=== PATIENT | female | born 1945 | race Caucasian/White ===

== ENCOUNTER 2018-11-03 15:44 | Emergency (ER) | payer BC, OTHER ==
[2018-11-03 15:53] VITALS: TEMP 97.9; BMI 21.4
--- NOTE | 2018-11-03 19:19 | PDOC ---
History of Present Illness - General Chief Complaint: Vomiting/Diarrhea Stated Complaint: SIDE AFFECTS TO A MEDICATION Time Seen by Provider: 11/03/18 19:19 Past History - Past Medical History Allergies/Adverse Reactions: Allergies Allergy/AdvReac Type Severity Reaction Status Date / Time aspirin Allergy Verified 11/03/18 15:54 Home Medications: Ambulatory Orders Calcium (Oyster Shell) [Os-Jose 500MG -] 500 mg PO DAILY #14 tablet 06/08/12 Losartan Potassium [Cozaar -] 50 mg PO DAILY #30 tablet 06/08/12 Multivitamins [Multivit ([facility])] 1 udtab PO DAILY #10 tab 06/08/12 Atorvastatin Ca [Lipitor -] 20 mg PO tablet 07/12/13 Carvedilol 12.5 mg PO tablet 07/12/13 Vitamin B Complex 1 each PO tablet 07/12/13 COPD: No HTN: Yes Hypercholesterolemia: Yes - Surgical History Cholecystectomy: Yes - Suicide/Smoking/Psychosocial Hx Smoking Status: No Smoking History: Never smoked Number of Cigarettes Smoked Daily: 0 Hx Alcohol Use: No Drug/Substance Use Hx: No *Physical Exam - Vital Signs Last Vital Signs Temp Pulse Resp BP Pulse Ox 97.9 F 58 L 16 163/88 97 11/03/18 15:52 11/03/18 15:52 11/03/18 15:52 11/03/18 15:52 11/03/18 15:52 ED Treatment Course - LABORATORY CBC & Chemistry Diagram: 11/03/18 20:00 11/03/18 20:00 Medical Decision Making - Medical Decision Making HPI: 73yo F with PMH of HTN, HLD, dementia, "a small stroke," osteoporosis presenting with nausea, vomiting, and diarrhea. Patient's daughter is at the bedside providing collateral history. Patient was started on donepezil 5mg for dementia after waiting several weeks for insurance approval. She took a pill yesterday around nine am and felt nauseous and lightheaded around 2:30pm. She felt better last night, but again took the pill this morning and was symptomatic in the afternoon. Patient had two episodes of vomit consisting of undigested food and bile today. Still feels nauseous. Had two loose nonbloody stools yesteday and three today which is unusual for her. Never felt like this way before. History of abdominal surgeries include gallbladder removal and c- section. Tried to get in touch with prescriber, left a phone message, but missed the callback. Denies abdominal pain. No fevers, chills, chest pain, or shortness of breath. Patient is Upper Sorbian-speaking, declined alteration worker services, and requested her daughter translate. ROS: Constitutional: no fever, no chills HEENT: no throat pain, no dysphagia Cardiovascular: no chest pain, no palpitations Respiratory: no cough, no shortness of breath Gastrointestinal: no abdominal pain, +nausea Genitourinary: no dysuria, no hematuria Musculoskeletal: +back pain, no leg pain Skin: no rash, no itching Neurologic: no headache, no weakness PE: General: Awake, alert, and fully oriented, in no acute distress Head: No signs of trauma Eyes: EOMI, sclera anicteric ENT: Moist mucus membranes Neck: Normal ROM, supple Lungs: Lungs clear, Normal breath sounds Cardio: Regular rhythm, S1 and S2 present Abdomen: Soft, nontender. No guarding, no rebound, no masses Extremities: Normal range of motion, Distal pulses present SKIN: Warm, Dry, normal turgor Neurologic: Cranial nerves II through XII grossly intact. Normal speech ED Course/MDM: DDX including but not limited to medication adverse affect, gastritis, GERD, pancreatitis, viral illness Labs Caryn [place] 11/03/18 19:19 11/03/18 20:13 11/03/18 22:46 *DC/Admit/Observation/Transfer Diagnosis at time of Disposition: Nausea & vomiting Qualifiers: Vomiting type: bilious vomiting Qualified Code(s): R11.14 - Bilious vomiting - Discharge Dispostion Disposition: HOME Condition at time of disposition: Improved - Referrals Referrals: Jeevan Falcon MD [Primary Care Provider] - Carmen Woo PA [Physician Bindery Leadperson] - - Patient Instructions Printed Discharge Instructions: DI for Vomiting -- Adult Additional Instructions: You came into the ED for nausea, vomiting, and diarrhea. We gave you medicine which helped you feel better. Labs did not indicate acute pathology Prescription sent to your pharmacy for nausea/vomiting. Take as instructed. Follow-up with your primary care provider within 72 hours to discuss this ED visit and to further evaluate your symptoms. Call tomorrow morning and make an appointment . Your workup is not complete until you do so. Immediate medical attention is required if you develop: severe abdominal pain, high fevers, persistent nausea, vomiting, or any new or concerning symptoms. If you think you are having an emergency, call for emergency medical services or present to the emergency department right away. ==== Llegaste al servicio de urgencias por nuseas, vmitos y diarrea. Le dimos medicamentos que lo ayudaron a sentirse mejor. Los laboratorios no indicaron patologa aguda Receta enviada a obrien farmacia para nuseas / vmitos. Tmelo segn las instrucciones. Sweta un seguimiento con obrien proveedor de atencin primaria dentro de las 72 horas para analizar esta visita al servicio de urgencias y evaluar mejor sandeep sntomas. Llame maana por la maana y sweta greg chikis. Obrien trabajo no est completo hasta que lo sweta. Se requiere atencin mdica inmediata si desarrolla: dolor abdominal intenso, fiebre carlos enrique, nuseas persistentes, vmitos o cualquier sntoma nuevo o preocupante. Si darling que tiene greg emergencia, llame a los servicios mdicos de emergencia o presntese en el departamento de emergencias de inmediato. Print Language: GREENLANDIC - Post Discharge Activity
[2018-11-03] MEDS ORDERED: SODIUM CHLORIDE 1,000 ML IV STA (19:41)
[2018-11-03] MEDS ORDERED: ONDANSETRON 4 MG/2 ML VIAL IVPUSH ONE (19:41)
[2018-11-03] MEDS ORDERED: ONDANSETRON 4 MG/2 ML VIAL ONE (19:54)
[2018-11-03 20:10] LABS: BASO % 0.6 % (0-2.0); EOS % 0.7 % (0-4.5); HEMOGLOBIN 15.9 GM/dL (10.7-15.3); LYMPH % 15.4 % (8-40); MCH 30.4 pg (25.7-33.7); MCHC 33.7 g/dl (32.0-36.0); MEAN PLT VOLUME 8.5 fl (7.5-11.1); MONO % 2.6 % (3.8-10.2); NEUT % 80.7 % (42.8-82.8); PLATELET COUNT 164 K/MM3 (134-434); RBC 5.22 M/mm3 (3.60-5.2); RDW 14.5 % (11.6-15.6); WHITE BLOOD COUNT 5.3 K/mm3 (4.0-10.0)
[2018-11-03 20:44] LABS: ALBUMIN 4.2 g/dl (3.4-5.0); BILIRUBIN,TOTAL 0.7 mg/dL (0.2-1); BLOOD UREA NITROGEN 14.3 mg/dL (7-18); CALCIUM 9.7 mg/dL (8.5-10.1); CREATININE 0.7 mg/dL (0.55-1.3); POTASSIUM 4.5 mmol/L (3.5-5.1); TOT PROT 8.1 g/dl (6.4-8.2)
--- NOTE | 2018-11-03 22:35 | PDOC ---
Attending Attestation - Resident Resident Name: Kinsey Ye - ED Attending Attestation I have performed the following: I have examined & evaluated the patient, The case was reviewed & discussed with the resident, I agree w/resident's findings & plan, Exceptions are as noted - HPI HPI: 11/03/18 22:35 73 yo female started a new medication and now has nausea and vomiting - Physicial Exam PE: 11/03/18 22:[address] Ye's physical exam BENIGN ABDOMINAL EXAM - Medical Decision Making 11/03/18 22:49 73 yo female started taking donepezil for dementia and started to have vomiting she has a benign abdominal exam there is a high incidence of nausea and vomiting with this medication pt will followup with her PCP this week
[2018-11-04 04:15] VITALS: BP 164/83; PULSE 52
== END 2018-11-03 23:35 | disposition home or self-care (01) ==
LOC: SUPCPDRO 15:44 → JER 15:44
PROC: 3E033GC Introduction of Other Therapeutic Substance into Peripheral Vein, Percutaneous Approach (ICD-10-PCS; principal; 2018-11-03)
PROC: 3E0337Z Introduction of Electrolytic and Water Balance Substance into Peripheral Vein, Percutaneous Approach (ICD-10-PCS; 2018-11-03)
DX: R11.14 Bilious vomiting (principal); I10 Essential (primary) hypertension; E78.5 Hyperlipidemia, unspecified; Z86.73 Personal history of transient ischemic attack (TIA), and cerebral infarction without residual deficits; R19.7 Diarrhea, unspecified
CPT/HCPCS: 36415; 80053; 83690; 85025; 96361; 96374; 99282-25; J7030

== ENCOUNTER 2020-07-16 23:50 | Inpatient (IN) | payer BC, OTHER ==
[2020-07-17 00:41] VITALS: BMI 24.0
[2020-07-17 00:50] LABS: BASO % 0.4 % (0-2.0); EOS % 2.6 % (0-4.5); HEMATOCRIT 42.4 % (32.4-45.2); HEMOGLOBIN 14.3 GM/dL (10.7-15.3); LYMPH % 31.5 % (8-40); MCH 30.3 pg (25.7-33.7); MCHC 33.7 g/dl (32.0-36.0); MEAN PLT VOLUME 9.3 fl (7.5-11.1); MONO % 6.3 % (3.8-10.2); NEUT % 59.2 % (42.8-82.8); PLATELET COUNT 162 K/MM3 (134-434); RBC 4.71 M/mm3 (3.60-5.2); RDW 14.2 % (11.6-15.6); WHITE BLOOD COUNT 4.5 K/mm3 (4.0-10.0)
[2020-07-17 00:57] LABS: INR 1.03 (0.83-1.09); PROTHROMBIN TIME (PATIENT) 12.7 SEC (9.7-13.0)
[2020-07-17 00:59] LABS: ACTIVATED PTT 30.3 SECONDS (25.2-36.5)
[2020-07-17 01:03] LABS: CHLORIDE 106 mmol/L (98-107); SODIUM 141 mmol/L (136-145)
[2020-07-17 01:04] LABS: PH,URINE 7.5 (5.0-8.0); URINE APPEARANCE CLEAR; URINE BILIRUBIN NEGATIVE (NEGATIVE); URINE COLOR YELLOW; URINE GLUCOSE (UA) NEGATIVE (NEGATIVE); URINE KETONE NEGATIVE (NEGATIVE); URINE LEUK ESTERASE NEGATIVE (NEGATIVE); URINE NITRITE NEGATIVE (NEGATIVE); URINE PROTEIN NEGATIVE (NEGATIVE); URINE UROBILINOGEN 0.2 mg/dL (0.2-1.0)
[2020-07-17 01:06] LABS: ANION GAP 4 MMOL/L (8-16); CALCIUM 8.8 mg/dL (8.5-10.1); CO2 31 mmol/L (21-32)
[2020-07-17 01:07] LABS: BLOOD UREA NITROGEN 20.9 mg/dL (7-18); GLUCOSE,RANDOM 99 mg/dL (74-106)
[2020-07-17 01:08] LABS: SGPT/ALT 21 U/L (13-61)
[2020-07-17 01:10] LABS: BILIRUBIN,TOTAL 0.3 mg/dL (0.2-1); CHOLESTEROL 217 mg/dL (50-200); CREATININE 0.7 mg/dL (0.55-1.3); LDL CHOLESTEROL (ONLY SJRH) 125 mg/dL (5-100); SGOT/AST 24 U/L (15-37); TOT PROT 7.5 g/dl (6.4-8.2); TRIGLYCERIDES 88 mg/dL (0-150)
[2020-07-17 01:12] LABS: ALK PHOS 67 U/L (45-117); HDL CHOLESTEROL 61 mg/dL (40-60)
[2020-07-17] MEDS: SODIUM CHLORIDE 1,000 ML IV SCH (01:40)
[2020-07-17] MEDS: CLOPIDOGREL BISULFATE 75 MG TABLET (FP) PO SCH (14:19)
[2020-07-17] MEDS ORDERED: PT OWN MED DRAWER 7, Y5N ONE (18:28)
[2020-07-17] MEDS: ENOXAPARIN NA (PORCINE) 40 MG/0.4 ML DISP.SYRIN SQ SCH (18:42)
[2020-07-17] MEDS: ATORVASTATIN CA 40 MG TABLET (FP) PO SCH (21:25)
[2020-07-18 06:55] LABS: HEMATOCRIT 42.5 % (32.4-45.2); HEMOGLOBIN 14.5 GM/dL (10.7-15.3); MCH 30.5 pg (25.7-33.7); MEAN CELL VOLUME 89.5 fl (80-96); MEAN PLT VOLUME 9.3 fl (7.5-11.1); PLATELET COUNT 144 K/MM3 (134-434); RBC 4.74 M/mm3 (3.60-5.2); RDW 13.9 % (11.6-15.6); WHITE BLOOD COUNT 2.9 K/mm3 (4.0-10.0)
[2020-07-18 07:29] LABS: CHLORIDE 109 mmol/L (98-107); SODIUM 140 mmol/L (136-145)
[2020-07-18 07:33] LABS: CALCIUM 8.2 mg/dL (8.5-10.1); GLUCOSE,RANDOM 104 mg/dL (74-106)
[2020-07-18 07:34] LABS: ANION GAP 6 MMOL/L (8-16); CO2 26 mmol/L (21-32)
[2020-07-18 07:37] LABS: CREATININE 0.6 mg/dL (0.55-1.3)
[2020-07-18] MEDS: CALCIUM (OYSTER SHELL) 500 MG TABLET (FP) PO SCH (09:26)
[2020-07-18] MEDS: MULTIVITAMINS (DAILY MVI) TABLET (FP) PO SCH (09:26)
[2020-07-18] MEDS: CLOPIDOGREL BISULFATE 75 MG TABLET (FP) PO SCH (09:26)
[2020-07-18] MEDS: VITAMIN B COMPLEX W/C COMBO TABLET (FP) PO SCH (09:26)
[2020-07-18] MEDS: ENOXAPARIN NA (PORCINE) 40 MG/0.4 ML DISP.SYRIN SQ SCH (09:26)
[2020-07-18] MEDS: FAMOTIDINE 40 MG TABLET PO SCH (11:13)
[2020-07-18] MEDS ORDERED: LOSARTAN POTASSIUM 25 MG TABLET PO SCH (13:15)
[2020-07-18] MEDS ORDERED: LOSARTAN POTASSIUM 25 MG TABLET PO ONE (14:32)
[2020-07-18] MEDS: SODIUM CHLORIDE 1,000 ML IV SCH (14:44)
[2020-07-18] MEDS: ATORVASTATIN CA 40 MG TABLET (FP) PO SCH (21:57)
[2020-07-19] MEDS ORDERED: hydrALAZINE HCL 20 MG/ML VIAL IVPUSH ONE (02:13)
[2020-07-19] MEDS: LOSARTAN POTASSIUM 50 MG TABLET PO SCH (09:04)
[2020-07-19] MEDS: MULTIVITAMINS (DAILY MVI) TABLET (FP) PO SCH (09:05)
[2020-07-19] MEDS: CLOPIDOGREL BISULFATE 75 MG TABLET (FP) PO SCH (09:05)
[2020-07-19] MEDS: CALCIUM (OYSTER SHELL) 500 MG TABLET (FP) PO SCH (09:05)
[2020-07-19] MEDS: ENOXAPARIN NA (PORCINE) 40 MG/0.4 ML DISP.SYRIN SQ SCH (09:05)
[2020-07-19] MEDS: VITAMIN B COMPLEX W/C COMBO TABLET (FP) PO SCH (09:05)
[2020-07-19] MEDS: FAMOTIDINE 40 MG TABLET PO SCH (10:01)
[2020-07-19] MEDS: amLODIPine BESYLATE 5 MG TABLET (FP) PO SCH (17:46)
[2020-07-19] MEDS: ATORVASTATIN CA 40 MG TABLET (FP) PO SCH (21:00)
[2020-07-20] MEDS: LOSARTAN POTASSIUM 50 MG TABLET PO SCH (10:20)
[2020-07-20] MEDS: CLOPIDOGREL BISULFATE 75 MG TABLET (FP) PO SCH (10:20)
[2020-07-20] MEDS: CALCIUM (OYSTER SHELL) 500 MG TABLET (FP) PO SCH (10:20)
[2020-07-20] MEDS: MULTIVITAMINS (DAILY MVI) TABLET (FP) PO SCH (10:20)
[2020-07-20] MEDS: ENOXAPARIN NA (PORCINE) 40 MG/0.4 ML DISP.SYRIN SQ SCH (10:20)
[2020-07-20] MEDS: VITAMIN B COMPLEX W/C COMBO TABLET (FP) PO SCH (10:20)
[2020-07-20] MEDS: amLODIPine BESYLATE 5 MG TABLET (FP) PO SCH (10:20)
[2020-07-20] MEDS: FAMOTIDINE 40 MG TABLET PO SCH (10:21)
[2020-07-20] MEDS: ATORVASTATIN CA 40 MG TABLET (FP) PO SCH (21:10)
[2020-07-21] MEDS: FAMOTIDINE 40 MG TABLET PO SCH (09:24)
[2020-07-21] MEDS: ENOXAPARIN NA (PORCINE) 40 MG/0.4 ML DISP.SYRIN SQ SCH (09:24)
[2020-07-21] MEDS: MULTIVITAMINS (DAILY MVI) TABLET (FP) PO SCH (09:24)
[2020-07-21] MEDS: amLODIPine BESYLATE 5 MG TABLET (FP) PO SCH (09:24)
[2020-07-21] MEDS: CLOPIDOGREL BISULFATE 75 MG TABLET (FP) PO SCH (09:24)
[2020-07-21] MEDS: LOSARTAN POTASSIUM 50 MG TABLET PO SCH (09:24)
[2020-07-21] MEDS: CALCIUM (OYSTER SHELL) 500 MG TABLET (FP) PO SCH (09:24)
[2020-07-21] MEDS: VITAMIN B COMPLEX W/C COMBO TABLET (FP) PO SCH (09:24)
[2020-07-21] MEDS: ATORVASTATIN CA 40 MG TABLET (FP) PO SCH (22:25)
[2020-07-22 09:56] VITALS: BP 149/85; PULSE 80; TEMP 98
[2020-07-22] MEDS ORDERED: PT OWN MED DRAWER 7, Y5N ONE (10:10)
[2020-07-22] MEDS: CLOPIDOGREL BISULFATE 75 MG TABLET (FP) PO SCH (10:39)
[2020-07-22] MEDS: VITAMIN B COMPLEX W/C COMBO TABLET (FP) PO SCH (10:39)
[2020-07-22] MEDS: CALCIUM (OYSTER SHELL) 500 MG TABLET (FP) PO SCH (10:39)
[2020-07-22] MEDS: FAMOTIDINE 40 MG TABLET PO SCH (10:40)
[2020-07-22] MEDS: LOSARTAN POTASSIUM 50 MG TABLET PO SCH (10:40)
[2020-07-22] MEDS: ENOXAPARIN NA (PORCINE) 40 MG/0.4 ML DISP.SYRIN SQ SCH (10:40)
[2020-07-22] MEDS: amLODIPine BESYLATE 5 MG TABLET (FP) PO SCH (10:40)
[2020-07-22] MEDS: MULTIVITAMINS (DAILY MVI) TABLET (FP) PO SCH (10:41)
== END 2020-07-22 15:20 | disposition home or self-care (01) | DRG 65 ==
LOC: JER 23:50 → JERBED 07-17 01:28 → J4W 07-17 09:07
PROVIDERS: ADMIT Hospitalist; ATTEND Internal Medicine
DX: I63.9 Cerebral infarction, unspecified (principal); G81.91 Hemiplegia, unspecified affecting right dominant side; I10 Essential (primary) hypertension; F03.90 Unspecified dementia, unspecified severity, without behavioral disturbance, psychotic disturbance, mood disturbance, and anxiety; E78.5 Hyperlipidemia, unspecified; R29.707 NIHSS score 7
CPT/HCPCS: 36415; 70450-TC; 70496-TC; 70498-TC; 70551-TC; 71045-TC-FY; 72125-TC; 78452-TC; 80048; 80053; 80061; 81003; 82550; 83036; 83721; 84443; 84484; 85025; 85027; 85610; 85730; 86850; 86900; 86901; 93005; 93010; 93017; 93306-TC; 93880-TC; 97116-GP; 97161-GP; 99285-25; A9502; C9803; U0003; U0005

== ENCOUNTER 2021-07-30 11:56 | Inpatient (IN) | payer BC, OTHER ==
[2021-07-30] MEDS ORDERED: SODIUM CHLORIDE 1,000 ML IV SCH (12:15)
[2021-07-30 13:11] LABS: BASO % 0.6 % (0-2.0); EOS % 1.4 % (0-4.5); HEMATOCRIT 41.4 % (32.4-45.2); HEMOGLOBIN 14.1 GM/dL (10.7-15.3); LYMPH % 28.1 % (8-40); MCH 30.3 pg (25.7-33.7); MEAN PLT VOLUME 8.9 fl (7.5-11.1); MONO % 5.1 % (3.8-10.2); NEUT % 64.8 % (42.8-82.8); PLATELET COUNT 143 10^3/uL (134-434); RBC 4.65 M/mm3 (3.60-5.2); RDW 14.5 % (11.6-15.6); WHITE BLOOD COUNT 3.6 K/mm3 (4.0-10.0)
[2021-07-30 13:27] LABS: ACTIVATED PTT 32.9 SECONDS (25.2-36.5); PROTHROMBIN TIME (PATIENT) 11.5 SEC (9.7-13.0)
[2021-07-30 13:30] LABS: CALCIUM 8.7 mg/dL (8.5-10.1)
[2021-07-30 13:31] LABS: ALBUMIN 3.5 g/dl (3.4-5.0); BLOOD UREA NITROGEN 15.4 mg/dL (7-18)
[2021-07-30 13:33] LABS: CREATININE 0.7 mg/dL (0.55-1.3)
[2021-07-30 13:35] LABS: BILIRUBIN,TOTAL 0.5 mg/dL (0.2-1)
[2021-07-30] MEDS ORDERED: LIDOCAINE 5% TOPICAL PATCH TP ONE (13:57)
[2021-07-30] MEDS ORDERED: ACETAMINOPHEN 1000 MG/100 ML BAG IVPB ONE (13:57)
[2021-07-30 14:34] LABS: PH,URINE 7.5 (5.0-8.0); URINE APPEARANCE CLEAR; URINE BILIRUBIN NEGATIVE (NEGATIVE); URINE COLOR YELLOW; URINE GLUCOSE (UA) NEGATIVE (NEGATIVE); URINE KETONE NEGATIVE (NEGATIVE); URINE LEUK ESTERASE NEGATIVE (NEGATIVE); URINE NITRITE NEGATIVE (NEGATIVE); URINE PROTEIN NEGATIVE (NEGATIVE); URINE UROBILINOGEN 0.2 mg/dL (0.2-1.0)
[2021-07-30] MEDS ORDERED: LIDOCAINE 5% TOPICAL PATCH ONE (14:41)
[2021-07-30] MEDS ORDERED: ACETAMINOPHEN INJECTION 100 ML IVPB ONE (14:41)
[2021-07-30] MEDS ORDERED: CLOPIDOGREL BISULFATE 75 MG TABLET (FP) ONE (19:34)
[2021-07-30] MEDS ORDERED: ENOXAPARIN NA (PORCINE) 40 MG/0.4 ML DISP.SYRIN SQ ONE (19:34)
[2021-07-30] MEDS: ENOXAPARIN NA (PORCINE) 40 MG/0.4 ML DISP.SYRIN SQ SCH (19:55)
[2021-07-30] MEDS: CLOPIDOGREL BISULFATE 75 MG TABLET (FP) PO SCH (19:55)
[2021-07-30] MEDS ORDERED: LIDOCAINE PATCH REMOVAL MC SCH (22:00)
[2021-07-31] MEDS ORDERED: ATORVASTATIN CA 40 MG TABLET (FP) ONE ×2 (02:43→22:04)
[2021-07-31] MEDS: ATORVASTATIN CA 40 MG TABLET (FP) PO SCH ×2 (02:45→22:05)
[2021-07-31 07:07] LABS: BASO % 0.5 % (0-2.0); EOS % 2.6 % (0-4.5); HEMATOCRIT 44.9 % (32.4-45.2); HEMOGLOBIN 14.8 GM/dL (10.7-15.3); LYMPH % 33.9 % (8-40); MCH 29.8 pg (25.7-33.7); MCHC 33.1 g/dl (32.0-36.0); MEAN PLT VOLUME 8.8 fl (7.5-11.1); MONO % 6.5 % (3.8-10.2); NEUT % 56.5 % (42.8-82.8); PLATELET COUNT 146 10^3/uL (134-434); RBC 4.99 M/mm3 (3.60-5.2); RDW 14.2 % (11.6-15.6); WHITE BLOOD COUNT 3.3 K/mm3 (4.0-10.0)
[2021-07-31 07:25] LABS: CALCIUM 8.7 mg/dL (8.5-10.1)
[2021-07-31 07:26] LABS: ALBUMIN 3.6 g/dl (3.4-5.0); BLOOD UREA NITROGEN 9.2 mg/dL (7-18)
[2021-07-31 07:29] LABS: CREATININE 0.6 mg/dL (0.55-1.3)
[2021-07-31 07:30] LABS: BILIRUBIN,TOTAL 0.7 mg/dL (0.2-1)
[2021-07-31] MEDS ORDERED: amLODIPine BESYLATE 5 MG TABLET (FP) ONE (08:01)
[2021-07-31] MEDS ORDERED: LOSARTAN POTASSIUM 50 MG TABLET ONE (08:02)
[2021-07-31] MEDS ORDERED: FAMOTIDINE 20 MG TABLET ONE (08:02)
[2021-07-31] MEDS ORDERED: CLOPIDOGREL BISULFATE 75 MG TABLET (FP) ONE (08:02)
[2021-07-31] MEDS ORDERED: ENOXAPARIN NA (PORCINE) 40 MG/0.4 ML DISP.SYRIN SQ ONE (08:03)
[2021-07-31] MEDS ORDERED: MULTIVITAMINS (DAILY MVI) TABLET (FP) ONE (08:03)
[2021-07-31] MEDS ORDERED: VITAMIN B COMPLEX PO SCH (10:00)
[2021-07-31] MEDS ORDERED: PATIENT'S OWN MEDICATION (NON-FORMULARY) (Famotidine 40 MG Tablet) PO SCH (10:00)
[2021-07-31] MEDS: FAMOTIDINE 40 MG TABLET PO SCH (10:45)
[2021-07-31] MEDS: CLOPIDOGREL BISULFATE 75 MG TABLET (FP) PO SCH (10:45)
[2021-07-31] MEDS: MULTIVITAMINS (DAILY MVI) TABLET (FP) PO SCH (10:45)
[2021-07-31] MEDS: amLODIPine BESYLATE 5 MG TABLET (FP) PO SCH (10:45)
[2021-07-31] MEDS: LOSARTAN POTASSIUM 50 MG TABLET PO SCH (10:45)
[2021-07-31] MEDS ORDERED: POTASSIUM CHLORIDE TABS 20 MEQ TABLET.ER (FP) PO ONE ×2 (10:57→13:16)
[2021-07-31] MEDS: ENOXAPARIN NA (PORCINE) 40 MG/0.4 ML DISP.SYRIN SQ SCH (11:18)
[2021-07-31] MEDS: CALCIUM (OYSTER SHELL) 500 MG TABLET (FP) PO SCH (13:29)
[2021-07-31] MEDS: VITAMIN B COMPLEX W/C COMBO TABLET (FP) PO SCH (13:29)
[2021-08-01] MEDS: ENOXAPARIN NA (PORCINE) 40 MG/0.4 ML DISP.SYRIN SQ SCH (10:05)
[2021-08-01] MEDS: CALCIUM (OYSTER SHELL) 500 MG TABLET (FP) PO SCH (10:06)
[2021-08-01] MEDS: VITAMIN B COMPLEX W/C COMBO TABLET (FP) PO SCH (10:06)
[2021-08-01] MEDS: amLODIPine BESYLATE 5 MG TABLET (FP) PO SCH (10:06)
[2021-08-01] MEDS: MULTIVITAMINS (DAILY MVI) TABLET (FP) PO SCH (10:06)
[2021-08-01] MEDS: FAMOTIDINE 40 MG TABLET PO SCH (10:06)
[2021-08-01] MEDS: LOSARTAN POTASSIUM 50 MG TABLET PO SCH (10:07)
[2021-08-01] MEDS: TICAGRELOR 60 MG TABLET PO SCH ×2 (10:07→22:35)
[2021-08-01] MEDS: ATORVASTATIN CA 40 MG TABLET (FP) PO SCH (22:35)
[2021-08-02] MEDS: ENOXAPARIN NA (PORCINE) 40 MG/0.4 ML DISP.SYRIN SQ SCH (09:19)
[2021-08-02] MEDS: MULTIVITAMINS (DAILY MVI) TABLET (FP) PO SCH (09:20)
[2021-08-02] MEDS: VITAMIN B COMPLEX W/C COMBO TABLET (FP) PO SCH (09:20)
[2021-08-02] MEDS: amLODIPine BESYLATE 5 MG TABLET (FP) PO SCH (09:20)
[2021-08-02] MEDS: LOSARTAN POTASSIUM 50 MG TABLET PO SCH (09:23)
[2021-08-02] MEDS: FAMOTIDINE 40 MG TABLET PO SCH (09:26)
[2021-08-02] MEDS: TICAGRELOR 60 MG TABLET PO SCH ×2 (09:26→21:11)
[2021-08-02] MEDS: CALCIUM (OYSTER SHELL) 500 MG TABLET (FP) PO SCH (09:26)
[2021-08-02 18:12] LABS: BASO % 0.8 % (0-2.0); EOS % 3.2 % (0-4.5); HEMATOCRIT 49.5 % (32.4-45.2); HEMOGLOBIN 16.6 GM/dL (10.7-15.3); LYMPH % 43.3 % (8-40); MCH 29.9 pg (25.7-33.7); MCHC 33.6 g/dl (32.0-36.0); MEAN CELL VOLUME 89.2 fl (80-96); MEAN PLT VOLUME 8.6 fl (7.5-11.1); MONO % 9.4 % (3.8-10.2); NEUT % 43.3 % (42.8-82.8); PLATELET COUNT 158 10^3/uL (134-434); RBC 5.55 M/mm3 (3.60-5.2); RDW 14.6 % (11.6-15.6); WHITE BLOOD COUNT 3.6 K/mm3 (4.0-10.0)
[2021-08-02 18:31] LABS: BLOOD UREA NITROGEN 17.3 mg/dL (7-18)
[2021-08-02 18:34] LABS: CREATININE 0.8 mg/dL (0.55-1.3)
[2021-08-02] MEDS: ATORVASTATIN CA 40 MG TABLET (FP) PO SCH (21:11)
[2021-08-03] MEDS: TICAGRELOR 60 MG TABLET PO SCH ×2 (09:17→21:00)
[2021-08-03] MEDS: LOSARTAN POTASSIUM 50 MG TABLET PO SCH (09:17)
[2021-08-03] MEDS: ENOXAPARIN NA (PORCINE) 40 MG/0.4 ML DISP.SYRIN SQ SCH (09:17)
[2021-08-03] MEDS: amLODIPine BESYLATE 10 MG TABLET (FP) PO SCH (09:18)
[2021-08-03] MEDS: CALCIUM (OYSTER SHELL) 500 MG TABLET (FP) PO SCH (09:18)
[2021-08-03] MEDS: VITAMIN B COMPLEX W/C COMBO TABLET (FP) PO SCH (09:18)
[2021-08-03] MEDS: MULTIVITAMINS (DAILY MVI) TABLET (FP) PO SCH (09:18)
[2021-08-03] MEDS: FAMOTIDINE 40 MG TABLET PO SCH (09:19)
[2021-08-03] MEDS: SERTRALINE HCL 25 MG TABLET (FP) PO SCH (13:00)
[2021-08-03] MEDS: ATORVASTATIN CA 40 MG TABLET (FP) PO SCH (21:00)
[2021-08-04] MEDS: MULTIVITAMINS (DAILY MVI) TABLET (FP) PO SCH (09:11)
[2021-08-04] MEDS: CALCIUM (OYSTER SHELL) 500 MG TABLET (FP) PO SCH (09:11)
[2021-08-04] MEDS: ENOXAPARIN NA (PORCINE) 40 MG/0.4 ML DISP.SYRIN SQ SCH (09:11)
[2021-08-04] MEDS: FAMOTIDINE 40 MG TABLET PO SCH (09:11)
[2021-08-04] MEDS: LOSARTAN POTASSIUM 50 MG TABLET PO SCH (09:11)
[2021-08-04] MEDS: SERTRALINE HCL 25 MG TABLET (FP) PO SCH (09:11)
[2021-08-04] MEDS: amLODIPine BESYLATE 10 MG TABLET (FP) PO SCH (09:11)
[2021-08-04] MEDS: VITAMIN B COMPLEX W/C COMBO TABLET (FP) PO SCH (09:11)
[2021-08-04] MEDS: TICAGRELOR 60 MG TABLET PO SCH ×2 (09:11→21:22)
[2021-08-04] MEDS: ATORVASTATIN CA 40 MG TABLET (FP) PO SCH (21:22)
[2021-08-05] MEDS: amLODIPine BESYLATE 10 MG TABLET (FP) PO SCH (09:51)
[2021-08-05] MEDS: MULTIVITAMINS (DAILY MVI) TABLET (FP) PO SCH (09:51)
[2021-08-05] MEDS: LOSARTAN POTASSIUM 50 MG TABLET PO SCH (09:51)
[2021-08-05] MEDS: VITAMIN B COMPLEX W/C COMBO TABLET (FP) PO SCH (09:51)
[2021-08-05] MEDS: ENOXAPARIN NA (PORCINE) 40 MG/0.4 ML DISP.SYRIN SQ SCH (09:52)
[2021-08-05] MEDS: TICAGRELOR 60 MG TABLET PO SCH ×2 (09:54→21:42)
[2021-08-05] MEDS: FAMOTIDINE 40 MG TABLET PO SCH (09:54)
[2021-08-05] MEDS: CALCIUM (OYSTER SHELL) 500 MG TABLET (FP) PO SCH (09:55)
[2021-08-05] MEDS: SERTRALINE HCL 25 MG TABLET (FP) PO SCH (10:20)
[2021-08-05] MEDS: ATORVASTATIN CA 40 MG TABLET (FP) PO SCH (21:42)
[2021-08-06] MEDS: ENOXAPARIN NA (PORCINE) 40 MG/0.4 ML DISP.SYRIN SQ SCH (09:13)
[2021-08-06] MEDS: CALCIUM (OYSTER SHELL) 500 MG TABLET (FP) PO SCH (09:14)
[2021-08-06] MEDS: TICAGRELOR 60 MG TABLET PO SCH ×2 (09:14→21:27)
[2021-08-06] MEDS: FAMOTIDINE 40 MG TABLET PO SCH (09:14)
[2021-08-06] MEDS: LOSARTAN POTASSIUM 50 MG TABLET PO SCH (09:14)
[2021-08-06] MEDS: VITAMIN B COMPLEX W/C COMBO TABLET (FP) PO SCH (09:14)
[2021-08-06] MEDS: SERTRALINE HCL 25 MG TABLET (FP) PO SCH (09:14)
[2021-08-06] MEDS: MULTIVITAMINS (DAILY MVI) TABLET (FP) PO SCH (09:14)
[2021-08-06] MEDS: amLODIPine BESYLATE 10 MG TABLET (FP) PO SCH (09:15)
[2021-08-06 14:48] VITALS: BMI 20.9
[2021-08-06] MEDS ORDERED: ACETAMINOPHEN 325 MG TABLET (FP) PO PRN (21:06)
[2021-08-06] MEDS: ATORVASTATIN CA 40 MG TABLET (FP) PO SCH (21:26)
[2021-08-07] MEDS: LOSARTAN POTASSIUM 50 MG TABLET PO SCH (09:48)
[2021-08-07] MEDS: CALCIUM (OYSTER SHELL) 500 MG TABLET (FP) PO SCH (09:48)
[2021-08-07] MEDS: FAMOTIDINE 40 MG TABLET PO SCH (09:48)
[2021-08-07] MEDS: amLODIPine BESYLATE 10 MG TABLET (FP) PO SCH (09:48)
[2021-08-07] MEDS: TICAGRELOR 60 MG TABLET PO SCH (09:48)
[2021-08-07] MEDS: VITAMIN B COMPLEX W/C COMBO TABLET (FP) PO SCH (09:49)
[2021-08-07] MEDS: MULTIVITAMINS (DAILY MVI) TABLET (FP) PO SCH (09:49)
[2021-08-07] MEDS: SERTRALINE HCL 25 MG TABLET (FP) PO SCH (09:49)
[2021-08-07 16:06] VITALS: BP 141/80; PULSE 68; TEMP 97.7
== END 2021-08-07 17:08 | DRG 65 ==
LOC: JER 11:56 → JERBED 13:31 → J2W 07-31 22:18
PROVIDERS: ADMIT Internal Medicine; ATTEND Internal Medicine
DX: I63.89 Other cerebral infarction (principal); I69.354 Hemiplegia and hemiparesis following cerebral infarction affecting left non-dominant side; R29.704 NIHSS score 4; I10 Essential (primary) hypertension; E78.5 Hyperlipidemia, unspecified; F03.90 Unspecified dementia, unspecified severity, without behavioral disturbance, psychotic disturbance, mood disturbance, and anxiety; R53.1 Weakness; R73.03 Prediabetes; D72.819 Decreased white blood cell count, unspecified; E87.6 Hypokalemia; F32.A Depression, unspecified; Z85.3 Personal history of malignant neoplasm of breast
CPT/HCPCS: 36415; 70450-TC; 70496-TC; 70498-TC; 70551-TC; 80048; 80053; 80061; 81003; 82962; 83036; 84443; 85025; 85610; 85730; 86850; 86900; 86901; 93005; 93010; 93306-TC; 93880-TC; 97116-GP; 97162-GP; 99291; C9803-CS; Q9967; U0003; U0005

== ENCOUNTER 2023-05-09 12:17 | Emergency (ER) | payer OTHER ==
[2023-05-09 12:50] VITALS: BP 152/70; PULSE 58; RESP 18; TEMP 98; BMI 21.3
[2023-05-09 14:42] LABS: PH,URINE 8.5 (5.0-8.0); URINE APPEARANCE CLEAR; URINE BILIRUBIN NEGATIVE (NEGATIVE); URINE COLOR YELLOW; URINE GLUCOSE (UA) NEGATIVE (NEGATIVE); URINE KETONE NEGATIVE (NEGATIVE); URINE LEUK ESTERASE NEGATIVE (NEGATIVE); URINE NITRITE NEGATIVE (NEGATIVE); URINE PROTEIN NEGATIVE (NEGATIVE); URINE UROBILINOGEN 0.2 mg/dL (0.2-1.0)
[2023-05-09] MEDS ORDERED: ONDANSETRON 4 MG/2 ML VIAL ONE (14:58)
[2023-05-09 15:00] LABS: BASO % 0.2 % (0-2.0); EOS % 0.7 % (0-4.5); HEMATOCRIT 38.2 % (32.4-45.2); HEMOGLOBIN 12.9 GM/dL (10.7-15.3); LYMPH % 19.8 % (8-40); MCH 29.3 pg (25.7-33.7); MCHC 33.6 g/dl (32.0-36.0); MEAN CELL VOLUME 87.2 fl (80-96); MEAN PLT VOLUME 8.7 fl (7.5-11.1); NEUT % 75.3 % (42.8-82.8); PLATELET COUNT 161 10^3/uL (134-434); RBC 4.38 M/mm3 (3.60-5.2); RDW 14.9 % (11.6-15.6); WHITE BLOOD COUNT 5.3 K/mm3 (4.0-10.0)
[2023-05-09] MEDS: ONDANSETRON 4 MG/2 ML VIAL IVPUSH ONE (15:02)
[2023-05-09] MEDS: SODIUM CHLORIDE 0.9% 500 ML INFUS.BAG IV ONE (15:02)
[2023-05-09 15:12] LABS: POTASSIUM 4.2 mmol/L (3.5-5.1)
[2023-05-09 15:14] LABS: CALCIUM 9.5 mg/dL (8.5-10.1)
[2023-05-09 15:15] LABS: ALBUMIN 3.9 g/dl (3.4-5.0); MAGNESIUM 2.1 mg/dL (1.8-2.4)
[2023-05-09 15:18] LABS: CREATININE 0.7 mg/dL (0.55-1.3)
[2023-05-09 15:20] LABS: BILIRUBIN,TOTAL 0.4 mg/dL (0.2-1); TOT PROT 7.3 g/dl (6.4-8.2)
== END 2023-05-09 18:15 | disposition home or self-care (01) ==
LOC: JER 12:17
PROC: 3E030GC Introduction of Other Therapeutic Substance into Peripheral Vein, Open Approach (ICD-10-PCS; principal; 2023-05-09)
DX: R11.2 Nausea with vomiting, unspecified (principal); R19.7 Diarrhea, unspecified; R53.1 Weakness; R63.0 Anorexia; R10.30 Lower abdominal pain, unspecified; T44.0X5A Adverse effect of anticholinesterase agents, initial encounter; Z20.822 Contact with and (suspected) exposure to COVID-19
CPT/HCPCS: 0241U-QW; 36415; 71045-TC-FY; 80053; 81003; 83735; 84484; 85025; 87086; 93005; 93010; 96374; 99285-25

== ENCOUNTER 2024-08-31 11:38 | Day surgery (SDC) | payer OTHER ==
[2024-08-31] MEDS: ZOLEDRONIC ACID/MAN/WATER 5 MG/100 ML INFUS..BTL IVPB ONE (12:21)
[2024-08-31 13:14] VITALS: BP 123/63; PULSE 58; RESP 19; TEMP 98.4
== END 2024-08-31 13:00 | disposition home or self-care (01) ==
LOC: FINJECTION 11:38 → FM/S 11:39 → FINJECTION 13:00
PROVIDERS: ATTEND Family Medicine
PROC: 3E033GC Introduction of Other Therapeutic Substance into Peripheral Vein, Percutaneous Approach (ICD-10-PCS; principal; 2024-08-31)
DX: M81.0 Age-related osteoporosis without current pathological fracture (principal); M81.8 Other osteoporosis without current pathological fracture
CPT/HCPCS: 96365; J3489